=== PATIENT | male | born 1995 | race Caucasian/White ===

== ENCOUNTER 2023-10-24 20:32 | Emergency (ER) | payer BC ==
[~2023-10-24] VITALS: Ht 165.1 cm; Wt 79.4 kg
[2023-10-24 20:45] VITALS: BP_SYST 141; PULSE 85; RESP 18; TEMP 98.3; O2SAT 98
[2023-10-24] MEDS: cefTRIAXone 1 GM in LIDOCAINE 1%, 20 ML MDV 2.1 ML IM ONE (21:00)
[2023-10-24] MEDS ORDERED: CEPH-548 PO (21:03)
== END 2023-10-24 21:39 | disposition home or self-care (01) ==
LOC: SED 20:32
DX: L03.114 Cellulitis of left upper limb (principal)
CPT/HCPCS: 99283; 96372; J0696; J2001